=== PATIENT | female | born 1975 | race Caucasian/White ===

== ENCOUNTER → 2016-09-26 | Outpatient (CLI) | payer BC ==
--- NOTE | 2016-09-27 15:51 | DI ---
PA /LATERAL CHEST X-RAY, 09/26/2016 3:45 PM : Clinical History: Cough Previous Exam: None at this facility. There is no acute soft tissue or bony abnormality. Heart size is normal. There is airspace disease wi thin left lung base most consistent with subsegmental atelectasis. Mediastinal structures are normal. There are no pulmonary nodules. IMPRESSION: Linear airspace disease within the left lung base is most consistent with subsegmental atelectasis. C annot completely rule out an early pneumonia.
== END ==
LOC: MOB RAD 15:46
PROVIDERS: ATTEND Physician Assistant
DX: R05 Cough (principal); J18.9 Pneumonia, unspecified organism
CPT/HCPCS: 71020